=== PATIENT | male | born 1965 | race Caucasian/White ===

== ENCOUNTER 2017-06-22 05:59 | Emergency (ER) | payer MEDICAID | END 2017-06-22 06:39 | disposition home or self-care (01) | LOC: D.ER 05:59 | DX: N41.0 Acute prostatitis (principal) ==

== ENCOUNTER 2017-09-04 22:09 | Emergency (ER) | payer MEDICAID ==
[2017-09-04 23:10] LABS: APPEARANCE CLEAR (CLEAR); BILIRUBIN NEGATIVE (NEGATIVE); COLOR DK YELLOW (YELLOW); GLUCOSE NEGATIVE (NEGATIVE); KETONE SMALL mg/dL (NEGATIVE); NITRITE NEGATIVE (NEGATIVE); PROTEIN NEGATIVE (NEGATIVE); SPECIFIC GRAVITY 1.025 (1.005-1.020); UROBILINOGEN NORMAL (NORMAL)
[2017-09-04 23:11] LABS: BASOPHILS 0.4 % (0-2); EOSINOPHILS 2.5 % (0-7); HEMATOCRIT 40.1 % (42.0-54.0); HEMOGLOBIN 13.6 g/dL (13.5-17.5); MCH 30.3 pg (26.0-34.0); MCHC 33.9 g/dL (31.0-37.0); MCV 89.3 fL (80.0-100.0); MEAN PLATELET VOLUME 9.9 fL (7.4-10.4); MONOCYTES 11.8 % (2-11); NEUTROPHILS 51.3 % (40-80); PLATELET COUNT 269 10x3/uL (130-400); RBC 4.49 10x6/uL (4.20-6.10); RDW 12.4 % (11.5-14.5); WBC 6.7 10x3/uL (4.8-10.8)
[2017-09-04 23:27] LABS: ALBUMIN 3.9 g/dL (3.4-5.0); BILIRUBIN - TOTAL 0.78 mg/dL (0.2-1.3); CALCIUM 9.1 mg/dL (8.5-10.1); CARBON DIOXIDE 28.7 mmol/L (21.0-32.0); CREATININE - SERUM 1.3 mg/dL (0.6-1.3); POTASSIUM - SERUM 3.7 mmol/L (3.5-5.1); PROTEIN - SERUM 7.5 g/dL (6.4-8.2)
== END 2017-09-05 01:40 | disposition home or self-care (01) ==
LOC: D.ER 22:09
PROVIDERS: Family Medicine
DX: R19.00 Intra-abdominal and pelvic swelling, mass and lump, unspecified site (principal)

== ENCOUNTER 2019-03-07 17:09 | Emergency (ER) | payer MEDICAID ==
[~2019-03-07] VITALS: Ht 175.3 cm; Wt 67.7 kg
[2019-03-07 17:13] VITALS: Ht 175.3 cm; Wt 67.7 kg
[2019-03-07 17:59] LABS: APPEARANCE CLEAR (CLEAR); BILIRUBIN NEGATIVE (NEGATIVE); COLOR YELLOW (YELLOW); GLUCOSE NEGATIVE (NEGATIVE); KETONE NEGATIVE (NEGATIVE); NITRITE NEGATIVE (NEGATIVE); PROTEIN NEGATIVE (NEGATIVE); SPECIFIC GRAVITY 1.025 (1.005-1.020); UROBILINOGEN NORMAL (NORMAL)
[2019-03-07 18:22] VITALS: BP 114/84
[2019-03-07] MEDS ORDERED: LEVOFLOXACIN500 MG PO (18:35)
[2019-03-07] MEDS ORDERED: PHENAZOPYRIDIN200 MG PO (18:35)
== END 2019-03-07 19:01 | disposition home or self-care (01) ==
LOC: D.ER 17:09
PROVIDERS: Family Medicine
DX: R68.89 Other general symptoms and signs (principal); F15.10 Other stimulant abuse, uncomplicated